=== PATIENT | male | born 1985 | race Caucasian/White ===

== ENCOUNTER 2019-10-23 21:48 | Emergency (ER) | payer SELFPAY ==
--- NOTE | 2019-10-23 23:41 | EDM.PDOC ---
ED HPI GENERAL MEDICAL PROBLEM - General Chief Complaint: General Stated Complaint: ANKLE SWELLING WEIGHT GAIN SOB Time Seen by Provider: 10/23/19 23:20 Source of Information: Reports: Patient History Limitations: Reports: No Limitations - History of Present Illness INITIAL COMMENTS - FREE TEXT/NARRATIVE: Mr. Peralta is a very pleasant 34-year-old gentleman who now presents the ED stating that he has had left lower extremity discomfort and 13 pound weight gain over the past week, followed by lightheadedness, dyspnea on exertion, and left ankle swelling for the past 2 to 3 days. No associated fever, nausea, vomiting, constipation, diarrhea, urinary symptoms, or gross hematuria. No prior similar symptoms. The patient has not taken any [id number] or home remedies. Here in the ED, the patient's initial BP is found to be elevated at 167/83, otherwise, he is hemodynamically stable, afebrile, saturating 97% on room air. Other than the above symptoms, the patient denies recent fever, chills, sore throat, ear pain, nasal or sinus congestion, cough, chest pain, palpitations, nausea, vomiting, constipation, diarrhea, abdominal pain, urinary symptoms, recent bloody bowel movements or black bowel movements, recent joint aches, headaches, or rashes. The patient's PCP is Carla Sigala NP, at [facility]. - Related Data Allergies Allergy/AdvReac Type Severity Reaction Status Date / Time No Known Allergies Allergy Verified 10/23/19 22:01 Home Meds: Home Meds Ascorbic Acid [Vitamin C] 500 mg PO DAILY 10/23/19 [History] Calcium Carbonate [Calcium] 500 mg PO DAILY 10/23/19 [History] Cholecalciferol (Vitamin D3) [Vitamin D] 1 tab PO DAILY 10/23/19 [History] Past Medical History HEENT History: Reports: Impaired Vision Musculoskeletal History: Reports: Fracture (right wrist) Endocrine/Metabolic History: Reports: Obesity/BMI 30+ - Past Surgical History Dermatological Surgical History: Reports: Other (See Below) (Pilonidal cyst excision) Social & Family History - Family History Family Medical History: Noncontributory - Tobacco Use Smoking Status *Q: Never Smoker Second Hand Smoke Exposure: No - Caffeine Use Caffeine Use: Reports: Coffee, Energy Drinks - Alcohol Use Alcohol Use History: Yes Alcohol Use Frequency: Socially - Recreational Drug Use Recreational Drug Use: No - Living Situation & Occupation Living situation: Reports: Single, Alone Occupation: Employed ([email or web address] / [employer]) ED ROS GENERAL - Review of Systems Review Of Systems: Comprehensive ROS is negative, except as noted in HPI. ED EXAM, GENERAL - Physical Exam Exam: See Below Exam Limited By: No Limitations General Appearance: Alert, WD/WN, No Apparent Distress Eye Exam: Bilateral Eye: EOMI, Normal Inspection Ears: Normal External Exam, Hearing Grossly Normal Nose: Normal Inspection Throat/Mouth: Normal Inspection, Normal Lips, Normal Voice, No Airway Compromise Head: Atraumatic, Normocephalic Neck: Normal Inspection, Full Range of Motion Respiratory/Chest: No Respiratory Distress, Lungs Clear, Normal Breath Sounds, No Accessory Muscle Use Cardiovascular: Normal Peripheral Pulses, Regular Rate, Rhythm, No Gallop, No JVD, No Murmur, No Rub Peripheral Pulses: 3+: Radial (L), Radial (R), Popliteal (L), Popliteal (R), Posterior Tibial (L), Posterior Tibial (R), Dorsalis Pedis (L), Dorsalis Pedis (R) GI/Abdominal: Normal Bowel Sounds, Soft, Non-Tender, No Organomegaly, No Distention, No Abnormal Bruit, No Mass (Male) Exam: Deferred Rectal (Males) Exam: Deferred Back Exam: Normal Inspection, Full Range of Motion, NT Extremities: Normal Range of Motion, Normal Capillary Refill, Other (Trace left pretibial/ankle edema, when compared to the right) Neurological: Alert, Oriented, Normal Cognition, No Motor/Sensory Deficits Psychiatric: Normal Affect Skin Exam: Warm, Dry, Intact, Normal Color, No Rash Course - Vital Signs Last Recorded V/S: Last Vital Signs Temp 36.6 C 10/23/19 21:58 Pulse 73 10/23/19 21:58 Resp 18 10/23/19 21:58 BP 167/83 H 10/23/19 21:58 Pulse Ox 97 10/23/19 21:58 - Orders/Labs/Meds Labs: Laboratory Tests 10/23/19 10/24/19 10/24/19 Range/Units 23:59 00:20 00:20 WBC 7.70 (4.23-9.07) K/mm3 RBC 4.49 L (4.63-6.08) M/mm3 Hgb 14.9 (13.7-17.5) gm/dl Hct 43.3 (40.1-51.0) % MCV 96.4 H (79.0-92.2) fl MCH 33.2 H (25.7-32.2) pg MCHC 34.4 (32.2-35.5) g/dl RDW Std Deviation 40.9 (35.1-43.9) fL Plt Count 288 (163-337) K/mm3 MPV 10.3 (9.4-12.3) fl Neutrophils % (Manual) 63 H (40-60) % Band Neutrophils % 0 (0-10) % Lymphocytes % (Manual) 32 (20-40) % Atypical Lymphs % 0 % Monocytes % (Manual) 2 (2-10) % Eosinophils % (Manual) 2 (0.8-7.0) % Basophils % (Manual) 1 (0.2-1.2) Platelet Estimate Adequate Plt Morphology Comment Normal RBC Morph Comment Normal D-Dimer, Quantitative (0.19-0.50) mg/L Sodium 143 (136-145) mEq/L Potassium 3.4 L (3.5-5.1) mEq/L Chloride 105 (98-107) mEq/L Carbon Dioxide 29 (21-32) mEq/L Anion Gap 12.4 (5-15) BUN 15 (7-18) mg/dL Creatinine 1.3 (0.7-1.3) mg/dL Est Cr Clr Drug Dosing 81.11 mL/min Estimated GFR (MDRD) > 60 (>60) mL/min BUN/Creatinine Ratio 11.5 L (14-18) Glucose 123 H (74-106) mg/dL Calcium 8.4 L (8.5-10.1) mg/dL Total Bilirubin 0.6 (0.2-1.0) mg/dL AST 43 H (15-37) U/L ALT 69 H (16-63) U/L Alkaline Phosphatase 51 (46-116) U/L NT-Pro-B Natriuret Pep (0-125) pg/mL Total Protein 6.6 (6.4-8.2) g/dl Albumin 4.0 (3.4-5.0) g/dl Globulin 2.6 gm/dL Albumin/Globulin Ratio 1.5 (1-2) SARS Virus RNA (PCR) Negative (NEGATIVE) 10/24/19 10/24/19 Range/Units 00:20 00:20 WBC (4.23-9.07) K/mm3 RBC (4.63-6.08) M/mm3 Hgb (13.7-17.5) gm/dl Hct (40.1-51.0) % MCV (79.0-92.2) fl MCH (25.7-32.2) pg MCHC (32.2-35.5) g/dl RDW Std Deviation (35.1-43.9) fL Plt Count (163-337) K/mm3 MPV (9.4-12.3) fl Neutrophils % (Manual) (40-60) % Band Neutrophils % (0-10) % Lymphocytes % (Manual) (20-40) % Atypical Lymphs % % Monocytes % (Manual) (2-10) % Eosinophils % (Manual) (0.8-7.0) % Basophils % (Manual) (0.2-1.2) Platelet Estimate Plt Morphology Comment RBC Morph Comment D-Dimer, Quantitative < 0.19 L (0.19-0.50) mg/L Sodium (136-145) mEq/L Potassium (3.5-5.1) mEq/L Chloride (98-107) mEq/L Carbon Dioxide (21-32) mEq/L Anion Gap (5-15) BUN (7-18) mg/dL Creatinine (0.7-1.3) mg/dL Est Cr Clr Drug Dosing mL/min Estimated GFR (MDRD) (>60) mL/min BUN/Creatinine Ratio (14-18) Glucose (74-106) mg/dL Calcium (8.5-10.1) mg/dL Total Bilirubin (0.2-1.0) mg/dL AST (15-37) U/L ALT (16-63) U/L Alkaline Phosphatase (46-116) U/L NT-Pro-B Natriuret Pep 16 (0-125) pg/mL Total Protein (6.4-8.2) g/dl Albumin (3.4-5.0) g/dl Globulin gm/dL Albumin/Globulin Ratio (1-2) SARS Virus RNA (PCR) (NEGATIVE) - Re-Assessments/Exams Free Text/Narrative Re-Assessment/Exam: 10/23/19 23:38 As above, the patient has had a 13 pound weight gain over less than 1 week, along with dizziness, dyspnea on exertion, and left ankle swelling over the past few days. He also describes left lower extremity discomfort over the past week. His physical exam is grossly unremarkable, with only a trace amount of left pretibial or ankle edema. I have ordered a D-dimer to evaluate for the possibility of a PE, along with a left lower extremity Doppler ultrasound to rule out a DVT. I have ordered additional blood work, a chest x-ray, and because a number of the patient's symptoms are consistent with COVID-19, I have also ordered a test for the SARS-CoV-2 virus. 10/23/19 23:55 Two-view chest radiograph appears to be grossly normal. The cardiac silhouette is within normal limits. No pulmonary vascular congestion. No pleural effusions. No focal infiltrate. No pneumothorax. Formal read per the Radiologist pending. 10/24/19 01:01 Doppler ultrasound of the left lower extremity as read by Ebonie as "Negative. No deep venous thrombosis is seen." 10/24/19 01:27 The patient's CBC is unremarkable. His CMP is remarkable for a potassium slightly depressed at 3.4, and a blood glucose mildly elevated at 123. His AST/ALT are slightly elevated at 43/69, respectively, with the remainder of his CMP being unremarkable. His BNP is within normal limits at 16. His D-dimer returned undetectably low. His swab for the SARS-CoV-2 virus returned negative. 10/24/19 01:31 Test results discussed with the patient. As above, today's work-up is entirely unremarkable, and does not explain the cause of his symptoms, however, I reassured the patient that whatever it is due to, it does not appear to be anything serious. The patient is satisfied. I will discharge him home. Departure - Departure Time of Disposition: 01:32 Disposition: Home, Self-Care 01 Condition: Good Clinical Impression: Dyspnea, Weight gain - Discharge Information *PRESCRIPTION DRUG MONITORING PROGRAM REVIEWED*: Not Applicable *COPY OF PRESCRIPTION DRUG MONITORING REPORT IN PATIENT LISBETH: Not Applicable Referrals: Carla Sigala [Ordering Only Provider] - Forms: ED Department Discharge Additional Instructions: You were seen in the emergency room after gaining about 13 pounds in less than a week, along with 2 to 3 days of dizziness, shortness of breath on exertion, and left ankle swelling. Work-up in the ER included blood work, a chest x-ray, a Doppler ultrasound of your left lower extremity, and a swab for the novel coronavirus. Your entire work-up returned normal. You are not anemic. No significant electrolyte abnormalities were found. You do not have pneumonia or a collapsed lung. You do not have a blood clot in your leg or a blood clot in your lungs. You do not have COVID-19. Unfortunately, with a negative work-up, we cannot tell you the cause of your symptoms, however, as discussed, it does not appear to be due to anything serious. If your symptoms persist, we recommend that you follow-up with your PCP, Dr. Carla Sigala, in [place]. If any other problems, please do not hesitate to return to the ER. Sepsis Event Note (ED) - Evaluation Sepsis Screening Result: No Definite Risk
--- NOTE | 2019-10-26 06:07 | CR ---
Chest: 2 views of the chest were obtained. Comparison: No previous chest imaging. Heart size and mediastinum are normal. Lungs are clear with no acute parenchymal change. Bony structures appear within normal limits. Impression: 1. Nothing acute is seen on 2 view chest x-ray. Diagnostic code #1 This report was dictated in MDT
--- NOTE | 2019-10-26 06:08 | US ---
Left lower extremity deep venous ultrasound: Duplex and color Doppler evaluation was obtained of the left common femoral, proximal greater saphenous, superficial femoral, popliteal, posterior tibial and peroneal veins. Right common femoral vein was also evaluated. Findings: Normal phasic flow, augmentation and compression is seen. Impression: 1. No evidence of deep venous thrombosis within the left lower extremity or right common femoral vein. Diagnostic code #1 This report was dictated in MDT I agree with preliminary report from aron, finalized on , 1:57 AM Central Daylight Time
== END 2019-10-24 01:40 | disposition home or self-care (01) ==
LOC: JD.ED 21:48
DX: R06.00 Dyspnea, unspecified (principal); R63.5 Abnormal weight gain; E87.6 Hypokalemia; Z20.828 Contact with and (suspected) exposure to other viral communicable diseases
CPT/HCPCS: 36415; 71046; 71046-26; 80053; 83880; 85007; 85027; 85379; 93971-26-LT; 93971-LT; 99285-25; U0002

== ENCOUNTER 2023-02-16 13:59 | Emergency (ER) | payer SELFPAY ==
[2023-02-16] MEDS ORDERED: Fluorescein 1 MG Ophth Strip EYELF ONE (14:17)
[2023-02-16] MEDS ORDERED: Proparacaine 0.5% Ophth Soln 15 ML Bottle EYELF ONE (14:31)
[2023-02-16] MEDS ORDERED: prednisoLONE Acetate 1% Ophth Susp 5 ML Bottle EYEBOTH SCH (17:00)
== END 2023-02-16 15:05 | disposition home or self-care (01) ==
LOC: JD.ED 13:59
DX: H18.822 Corneal disorder due to contact lens, left eye (principal); E66.9 Obesity, unspecified; Z68.33 Body mass index [BMI] 33.0-33.9, adult; Z86.16 Personal history of COVID-19
CPT/HCPCS: 99283; J3490